=== PATIENT | female | born 1985 | race Caucasian/White ===

== ENCOUNTER 2017-01-28 16:11 | Inpatient (IN) ==
[2017-01-28] MEDS ORDERED: BUTORPHANOL 2 MG/ML VIAL IV PRN (16:32)
[2017-01-28] MEDS ORDERED: ONDANSETRON 4 MG/2 ML VIAL IV PRN (16:32)
[2017-01-28] MEDS ORDERED: AMPICILLIN INJ 2,000 MG in SODIUM CHLORIDE 0.9% 50 ML IV ONE (16:33)
[2017-01-28] MEDS ORDERED: hydrOXYzine HCL 25 MG/1 ML VIAL IM PRN (16:49)
[2017-01-28] MEDS ORDERED: diphenhydrAMINE 50 MG/1 ML VIAL IV PRN ×2 (16:49)
[2017-01-28] MEDS ORDERED: ONDANSETRON 4 MG/2 ML VIAL IV ONE (16:49)
[2017-01-28] MEDS ORDERED: CITRIC ACID/SODIUM CITRATE 30 ML UDCUP PO ONE (16:49)
[2017-01-28] MEDS ORDERED: FAMOTIDINE 20 MG/2 ML VIAL IV ONE (16:49)
[2017-01-28] MEDS ORDERED: ePHEDrine 50 MG/ML AMP IV PRN (16:49)
[2017-01-28] MEDS ORDERED: PROMETHAZINE 25 MG/1 ML VIAL IM ONE (16:49)
[2017-01-28] MEDS ORDERED: LACTATED RINGERS 1,000 ML IV ONE (16:49)
[2017-01-28] MEDS: LACTATED RINGERS 1,000 ML IV SCH ×2 (16:50→17:06)
[2017-01-28 17:08] LABS: Basophils % 0.1 % (0.0-0.8); Eosinophils % 0.1 % (0.00-10.9); Hematocrit 34.4 VOL% (35.7-47.0); Hemoglobin 11.9 GM/DL (12.0-16.0); Immature Granulocytes % 0.7 %; Immature Granulocytes Absolute 0.11 #; Lymphocytes # 2.1 10*3/uL (1.4-4.0); Lymphocytes % 12.4 % (21.3-54.2); Mean Corpuscular HGB Conc 34.6 GM/DL (32-36); Mean Corpuscular Hemoglobin 30 PG (27-34); Mean Corpuscular Volume 87.8 FL (87-102); Mean Platelet Volume 11.7 FL (9.6-12.0); Monocytes # 1.3 10*3/uL (0.11-0.8); Monocytes % 7.8 % (1.7-12.7); Neutrophils # 13.3 10*3/uL (1.4-7.4); Neutrophils % 78.9 % (38.7-73.9); Platelet Count 164 T/CUMM (130-400); Red Blood Count 3.92 MC/CUMM (3.8-5.5); Red Cell Distribution Width 13.5 % (9.3-17.3); White Blood Count 16.8 T/CUMM (4-12)
[2017-01-28 17:35] LABS: Albumin 2.6 G/DL (3.4-5.0); Bilirubin,Total 0.5 MG/DL (0.2-1.0); Calcium 9.1 MG/DL (8.5-10.1); Osmolality,Calculated 269.8 MOS/KG (273-304); Potassium 3.8 MMOL/L (3.5-5.1); Total Protein 6.5 G/DL (6.4-8.3)
[2017-01-28 19:32] LABS: Apearance,Urine CLEAR (Clear); Bilirubin,Urine Negative (Negative); Blood, Urine Small mg/dL (Negative); Glucose,Urine (UA) Negative (Negative); Ketones,Urine 20 mg/dL (Negative); Mucus,Urine Occasional /LPF (Occasional); Nitrite,Urine Negative (Negative); Protein,Urine Negative; RBC,Urine 3 /HPF (0-4); Squamous Epithelial Cell,Urine Occasional /HPF (0-10); Urine Color Yellow (Yellow); Urine Specific Gravity 1.011 (1.001-1.035); Urine Urobilinogen < 2.0 EU/DL (0.2-1.0); WBC,Urine 1 /HPF (0-6)
[2017-01-28] MEDS: AMPICILLIN INJ 1,000 MG in SODIUM CHLORIDE 0.9% 50 ML IV SCH (20:07)
[2017-01-28] MEDS ORDERED: TRANEXAMIC ACID 1,000 MG/10 ML VIAL IV ONE (20:37)
[2017-01-28] MEDS ORDERED: miSOPROStol 200 MCG TABLET ONE (20:37)
[2017-01-28] MEDS ORDERED: LIDOCAINE 1% 50 ML VIAL ONE (20:37)
[2017-01-28] MEDS: OXYTOCIN/LR 20 UNIT/1,000 ML BAG IV SCH (22:00)
[2017-01-28 22:02] LABS: Cord Arterial Blood HCO3 23.5 MMOL/L
[2017-01-28 22:05] LABS: Cord Venous Blood HCO3 21.7 MMOL/L; Cord Venous Blood PCO2 44.1 MMHG; Cord Venous Blood PO2 18.3 MMHG
[2017-01-28] MEDS ORDERED: miSOPROStol 200 MCG TABLET RECTAL ONE (22:10)
[2017-01-28] MEDS ORDERED: METHYLERGONOVINE 0.2 MG/1 ML AMP ONE (22:16)
[2017-01-28] MEDS ORDERED: METHYLERGONOVINE 0.2 MG/1 ML AMP IM ONE (22:23)
[2017-01-29] MEDS: IBUPROFEN 800 MG TABLET PO PRN ×4 (00:27→19:53)
[2017-01-29] MEDS: oxyCODONE/ACETAMINOPHEN 5-325 MG TABLET PO PRN ×4 (02:58→21:46)
[2017-01-29] MEDS: LACTATED RINGERS 1,000 ML IV SCH ×2 (03:09→21:52)
[2017-01-29] MEDS: fentaNYL 2 MCG/ROPIV 0.2% EPID 150 ML EPIDURAL SCH ×3 (03:09→23:06)
[2017-01-29] MEDS: AMPICILLIN INJ 1,000 MG in SODIUM CHLORIDE 0.9% 50 ML IV SCH ×2 (03:09→05:54)
[2017-01-29 05:38] LABS: Basophils % 0.2 % (0.0-0.8); Hematocrit 27.4 VOL% (35.7-47.0); Hemoglobin 9.5 GM/DL (12.0-16.0); Immature Granulocytes % 0.6 %; Immature Granulocytes Absolute 0.13 #; Lymphocytes # 2.3 10*3/uL (1.4-4.0); Lymphocytes % 10.1 % (21.3-54.2); Mean Corpuscular HGB Conc 34.7 GM/DL (32-36); Mean Corpuscular Hemoglobin 31 PG (27-34); Mean Corpuscular Volume 88.4 FL (87-102); Mean Platelet Volume 11.7 FL (9.6-12.0); Monocytes # 1.6 10*3/uL (0.11-0.8); Monocytes % 7.2 % (1.7-12.7); Neutrophils # 18.2 10*3/uL (1.4-7.4); Neutrophils % 81.9 % (38.7-73.9); Platelet Count 154 T/CUMM (130-400); Red Cell Distribution Width 13.6 % (9.3-17.3); White Blood Count 22.3 T/CUMM (4-12)
[2017-01-29 06:08] LABS: Band Neutrophils 5 % (0-10); Lymphocytes 8 % (20-55); Segmented Neutrophils 83 % (50-85); Total Cells Counted 100
[2017-01-29 06:09] LABS: Microcytosis 1+; Platelet Estimate Adequate
[2017-01-29] MEDS ORDERED: WITCH HAZEL PADS 100/JAR TOP PRN (06:24)
[2017-01-29] MEDS ORDERED: HYDROCORTISONE 2.5% RECTAL CREAM 30 GM TUBE TOP PRN (06:25)
[2017-01-29] MEDS ORDERED: BENZOCAINE 20% SPRAY 57 GM CAN TOP PRN (06:27)
[2017-01-29] MEDS: DOCUSATE SODIUM 100 MG CAPSULE PO SCH ×2 (09:28→21:46)
[2017-01-29] MEDS: FERROUS SULFATE 325 MG TABLET PO SCH (21:46)
[2017-01-29] MEDS: OXYTOCIN/LR 20 UNIT/1,000 ML BAG IV SCH (21:52)
[2017-01-30] MEDS: oxyCODONE/ACETAMINOPHEN 5-325 MG TABLET PO PRN (07:33)
[2017-01-30 07:53] VITALS: BP 126/73
[2017-01-30] MEDS: FERROUS SULFATE 325 MG TABLET PO SCH (10:39)
[2017-01-30] MEDS: DOCUSATE SODIUM 100 MG CAPSULE PO SCH (10:39)
== END 2017-01-30 12:00 | disposition home or self-care (01) | DRG 775 ==
LOC: N.LDOUT 16:11 → N.LD 16:25 → N.OB 23:58
PROVIDERS: ADMIT Obstetrics & Gynecology; ATTEND Obstetrics & Gynecology

== ENCOUNTER 2018-11-20 10:18 | Inpatient (IN) ==
[2018-11-20] MEDS ORDERED: BUTORPHANOL 2 MG/ML VIAL IV PRN (10:59)
[2018-11-20] MEDS ORDERED: ONDANSETRON 4 MG/2 ML VIAL IV PRN ×2 (10:59→21:25)
[2018-11-20] MEDS ORDERED: LIDOCAINE 1% 50 ML VIAL MISC INJ ONE (10:59)
[2018-11-20] MEDS ORDERED: OXYTOCIN/LR 20 UNIT/1,000 ML BAG IV SCH (11:00)
[2018-11-20] MEDS ORDERED: AMPICILLIN INJ 2,000 MG in SODIUM CHLORIDE 0.9% 100 ML IV ONE (11:01)
[2018-11-20] MEDS: LACTATED RINGERS 1,000 ML IV SCH ×2 (11:15→19:20)
[2018-11-20 11:16] LABS: Basophils % 0.4 % (0.0-0.8); Eosinophils # 0.1 10*3/uL (0.0-0.87); Hematocrit 34.3 VOL% (35.7-47.0); Hemoglobin 11.2 GM/DL (12.0-16.0); Immature Granulocytes % 0.6 %; Immature Granulocytes Absolute 0.05 #; Lymphocytes # 2.1 10*3/uL (1.4-4.0); Lymphocytes % 25.1 % (21.3-54.2); Mean Corpuscular HGB Conc 32.7 GM/DL (32-36); Mean Corpuscular Volume 88.9 FL (87-102); Mean Platelet Volume 11.2 FL (9.6-12.0); Monocytes % 6.9 % (1.7-12.7); Platelet Count 183 T/CUMM (130-400); Red Blood Count 3.86 MC/CUMM (3.8-5.5); Red Cell Distribution Width 13.5 % (9.3-17.3); White Blood Count 8.4 T/CUMM (4-12)
[2018-11-20] MEDS ORDERED: FAMOTIDINE 20 MG/2 ML VIAL IV ONE (11:50)
[2018-11-20] MEDS ORDERED: CITRIC ACID/SODIUM CITRATE 30 ML UDCUP PO ONE (11:50)
[2018-11-20] MEDS ORDERED: LACTATED RINGERS 1,000 ML IV ONE (11:50)
[2018-11-20] MEDS ORDERED: ePHEDrine 50 MG/ML AMP IV PRN (11:50)
[2018-11-20] MEDS ORDERED: PROMETHAZINE 25 MG/1 ML VIAL IM ONE (11:51)
[2018-11-20] MEDS ORDERED: diphenhydrAMINE 50 MG/1 ML VIAL IV PRN ×2 (11:51)
[2018-11-20] MEDS ORDERED: hydrOXYzine HCL 25 MG/1 ML VIAL IM PRN (11:51)
[2018-11-20] MEDS ORDERED: LACTATED RINGERS 250 ML IV PRN (11:51)
[2018-11-20] MEDS ORDERED: NALOXONE 0.4 MG/ML VIAL IV PRN (11:51)
[2018-11-20] MEDS ORDERED: LACTATED RINGERS 1,000 ML IV SCH ×2 (12:00)
[2018-11-20] MEDS: fentaNYL 2 MCG/ROPIV 0.2% EPID 100 ML EPIDURAL SCH ×2 (13:04→19:36)
[2018-11-20 14:53] LABS: Apearance,Urine CLEAR (Clear); Bilirubin,Urine Negative (Negative); Blood, Urine Negative (Negative); Glucose,Urine (UA) Negative (Negative); Ketones,Urine 5 mg/dL (Negative); Nitrite,Urine Negative (Negative); Protein,Urine Negative; RBC,Urine 1 /HPF (0-4); Squamous Epithelial Cell,Urine Occasional /HPF (0-10); Urine Color Straw (Yellow); Urine Urobilinogen < 2.0 EU/DL (0.2-1.0); WBC,Urine <1 /HPF (0-6)
[2018-11-20] MEDS ORDERED: ROPIVACAINE 0.5% 30 ML VIAL ONE (15:12)
[2018-11-20] MEDS: AMPICILLIN INJ 1,000 MG in SODIUM CHLORIDE 0.9% 100 ML IV SCH ×2 (15:48→19:46)
[2018-11-20] MEDS ORDERED: fentaNYL 100 MCG/2 ML VIAL ONE (19:56)
[2018-11-20] MEDS ORDERED: miSOPROStol 200 MCG TABLET ONE (20:16)
[2018-11-20] MEDS ORDERED: LIDOCAINE 1% 50 ML VIAL ONE (20:16)
[2018-11-20] MEDS ORDERED: METHYLERGONOVINE 0.2 MG/1 ML AMP ONE (20:16)
[2018-11-20] MEDS ORDERED: CARBOPROST TROMETHAMINE 250 MCG/ML AMP IM ONE (20:17)
[2018-11-20] MEDS ORDERED: HYDROCORTISONE 2.5% RECTAL CREAM 30 GM TUBE TOP PRN (21:25)
[2018-11-20] MEDS ORDERED: RHO(D) IMMUNE GLOBULIN 300 MCG SYRINGE IM ONE (21:25)
[2018-11-20] MEDS ORDERED: WITCH HAZEL PADS 100/JAR TOP PRN (21:25)
[2018-11-20] MEDS ORDERED: BENZOCAINE 20%/MENTHOL 0.5% SPRAY 56 GM CAN TOP PRN (21:25)
[2018-11-20] MEDS ORDERED: ACETAMINOPHEN 325 MG TABLET PO PRN (21:25)
[2018-11-20] MEDS ORDERED: DIPH/TET/ACEL PERT BOOSTER VACCINE 0.5 ML VIAL IM ONE (21:25)
[2018-11-20] MEDS ORDERED: MEASLES/MUMPS/RUBELLA VACCINE 0.5 ML VIAL SUBCUT ONE (21:25)
[2018-11-20] MEDS ORDERED: BISACODYL 10 MG SUPP RECTAL PRN (21:25)
[2018-11-20] MEDS ORDERED: LANOLIN 50% CREAM 0.3 OZ TUBE TOP PRN (21:25)
[2018-11-20] MEDS ORDERED: OXYTOCIN/LR 20 UNIT/1,000 ML BAG IV ONE (21:25)
[2018-11-20] MEDS: IBUPROFEN 800 MG TABLET PO PRN (22:15)
[2018-11-21] MEDS: oxyCODONE/ACETAMINOPHEN 5-325 MG TABLET PO PRN ×4 (00:19→21:01)
[2018-11-21] MEDS: IBUPROFEN 800 MG TABLET PO PRN ×3 (03:54→18:45)
[2018-11-21 06:41] LABS: Basophils % 0.4 % (0.0-0.8); Eosinophils # 0.1 10*3/uL (0.0-0.87); Eosinophils % 0.7 % (0.00-10.9); Hematocrit 26.9 VOL% (35.7-47.0); Hemoglobin 8.7 GM/DL (12.0-16.0); Immature Granulocytes % 0.6 %; Immature Granulocytes Absolute 0.06 #; Lymphocytes # 2.5 10*3/uL (1.4-4.0); Lymphocytes % 22.5 % (21.3-54.2); Mean Corpuscular HGB Conc 32.3 GM/DL (32-36); Mean Corpuscular Volume 92.1 FL (87-102); Monocytes % 7.4 % (1.7-12.7); Neutrophils % 68.4 % (38.7-73.9); Platelet Count 149 T/CUMM (130-400); Red Blood Count 2.92 MC/CUMM (3.8-5.5); Red Cell Distribution Width 13.4 % (9.3-17.3); White Blood Count 10.9 T/CUMM (4-12)
[2018-11-21] MEDS: DOCUSATE SODIUM 100 MG CAPSULE PO SCH ×2 (09:35→21:00)
[2018-11-22] MEDS: IBUPROFEN 800 MG TABLET PO PRN ×2 (02:17→10:03)
[2018-11-22] MEDS: oxyCODONE/ACETAMINOPHEN 5-325 MG TABLET PO PRN (06:00)
[2018-11-22] MEDS: DOCUSATE SODIUM 100 MG CAPSULE PO SCH (09:49)
[2018-11-22 15:00] VITALS: BP 120/57
== END 2018-11-22 12:35 | disposition home or self-care (01) | DRG 768 ==
LOC: N.LDOUT 10:18 → N.LD 10:19 → N.OB 23:40
PROVIDERS: ADMIT Obstetrics & Gynecology; ATTEND Obstetrics & Gynecology